=== PATIENT | female | born 1965 | race Caucasian/White ===

== ENCOUNTER 2018-09-28 09:13 | Day surgery (SDC) | payer OTHER ==
[2018-09-28] MEDS ORDERED: PROPOFOL 20 ML (10:00)
[2018-09-28] MEDS ORDERED: FENTAnyl 50 MCG/ML VIAL ×2 (10:00→10:26)
[2018-09-28] MEDS ORDERED: ONDANSETRON 4 MG INJ IV (10:00)
[2018-09-28] MEDS ORDERED: PROPOFOL 0 ML (10:25)
[2018-09-28] MEDS ORDERED: EPHEDrine SULFATE 50 MG/5 ML SYG (10:25)
== END 2018-09-28 11:05 | disposition home or self-care (01) ==
LOC: GIL 09:13
DX: Z12.11 Encounter for screening for malignant neoplasm of colon (principal); K64.8 Other hemorrhoids; E78.5 Hyperlipidemia, unspecified
CPT/HCPCS: 45378